=== PATIENT | male | born 1955 | race Caucasian/White ===

== ENCOUNTER 2018-11-09 11:00 | Outpatient (CLI) | payer OTHER ==
--- NOTE | 2018-11-09 11:12 | RAD ---
EXAM: Chest PA and lateral: HISTORY: Shortness of breath COMPARISON: 09/04/2010 FINDINGS: Heart size:Within normal limits. Lungs:Clear of acute process. No confluent pneumonia, overt edema, pleural effusion, or other acute process. IMPRESSION: No significant acute intrathoracic disease.
[2018-11-09 11:19] LABS: #Basophils 0.1 thou/uL (0.0-0.2); #Eosinphils 0.1 thou/uL (0.0-0.7); #Lymphocytes 2.4 thou/uL (1.20-3.40); #Monocytes 0.5 thou/uL (0.11-0.59); #Neutrophils 4.7 thou/uL (1.40-6.50); %Eosinophils 1.2 % (0.0-10.0); %Lymphocytes 31.2 % (21.0-51.0); %Monocytes 5.9 % (0.0-10.0); %Neutrophils 60.6 % (42.0-75.0); Hemoglobin 16.1 g/dL (14.0-18.0); Mean Corpuscular HGB CONC 34.9 g/dL (32.0-36.0); Mean Corpuscular Hemoglobin 30.8 pg (27.0-31.0); Mean Corpuscular Volume 88.4 fL (78.0-98.0); Mean Platelet Volume 7.3 fL (7.4-10.4); Platelet Count 214 thou/uL (130-400); RBC Distribution Width 12.6 % (11.5-14.5); Red Blood Cell (RBC) Count 5.23 mill/uL (4.70-6.10); White Blood Cell (WBC) Count 7.8 thou/uL (4.8-10.8)
[2018-11-09 11:28] LABS: ALT (SGPT) 10 U/L (8-55); AST (SGOT) 29 U/L (5-34); Albumin 4.1 g/dL (3.4-4.8); Alkaline Phosphatase 91 U/L (40-150); Anion Gap 11 mmol/L (10-20); BUN (Urea Nitrogen) 15 mg/dL (8.4-25.7); Bilirubin, Total 0.8 mg/dL (0.2-1.2); Calc. Creatinine Clearance 0 mL/min (70-130); Calcium 9.4 mg/dL (7.8-10.44); Carbon Dioxide 29 mmol/L (23-31); Cardiac Risk 6.5 (Less than 4.5); Chloride 106 mmol/L (98-107); Cholesterol 208 mg/dl (< 200 Desired); Estimated GFR-MDRD 61; Globulin 3.3 g/dL (2.4-3.5); Glucose 101 mg/dL (80-115); HDL Cholesterol 32 mg/dL (>60 Neg Risk); LDL Cholesterol, Calculated 121 mg/dL; Potassium 3.9 mmol/L (3.5-5.1); Protein, Total 7.4 g/dL (5.8-8.1); Sodium 142 mmol/L (136-145); Triglycerides 275 mg/dL (Less than 150)
[2018-11-09 12:06] LABS: Free T4 (Free Thyroxine) 0.97 ng/dL (0.70-1.48); Thyroid Stimulating Hormone 1.6378 uIU/mL (0.35-4.94)
[2018-11-09 14:42] LABS: Hemoglobin A1c 5.6 % (4.0-6.0)
[2018-11-11 15:46] LABS: Ref Lab Test Ordered RBC-MAGNESIUM; Reference Lab Name LABCORP
== END 2018-11-09 11:01 | disposition home or self-care (01) ==
LOC: SCSRAD 11:00
PROVIDERS: ATTEND Family Medicine
DX: I87.2 Venous insufficiency (chronic) (peripheral) (principal); R06.02 Shortness of breath; R60.9 Edema, unspecified; R63.5 Abnormal weight gain
CPT/HCPCS: 36415; 71046; 80053; 80061; 83036; 83525; 83880; 84439; 84443; 84481; 84484; 85025; 85379

== ENCOUNTER 2021-01-03 23:11 | Emergency (ER) | payer MEDICARE, OTHER ==
[2021-01-03 23:52] LABS: #Basophils 0.1 thou/uL (0.0-0.2); #Eosinphils 0.1 thou/uL (0.0-0.7); #Lymphocytes 1.5 thou/uL (1.20-3.40); #Monocytes 0.3 thou/uL (0.11-0.59); #Neutrophils 5.3 thou/uL (1.40-6.50); %Basophils 0.9 % (0.0-1.0); %Eosinophils 1.1 % (0.0-10.0); %Lymphocytes 21.1 % (21.0-51.0); %Monocytes 4.4 % (0.0-10.0); %Neutrophils 72.5 % (42.0-75.0); Hemoglobin 14.9 g/dL (14.0-18.0); Mean Corpuscular HGB CONC 34.1 g/dL (32.0-36.0); Mean Corpuscular Hemoglobin 30.9 pg (27.0-31.0); Mean Corpuscular Volume 90.4 fL (78.0-98.0); Mean Platelet Volume 7.4 fL (7.4-10.4); Platelet Count 258 thou/uL (130-400); RBC Distribution Width 13.9 % (11.5-14.5); Red Blood Cell (RBC) Count 4.82 mill/uL (4.70-6.10); White Blood Cell (WBC) Count 7.3 thou/uL (4.8-10.8)
[2021-01-04 00:11] LABS: ALT (SGPT) Less than 7 U/L (8-55); AST (SGOT) 20 U/L (5-34); Albumin 3.8 g/dL (3.4-4.8); Alkaline Phosphatase 117 U/L (40-110); Anion Gap 14 mmol/L (10-20); BUN (Urea Nitrogen) 26 mg/dL (8.4-25.7); Bilirubin, Total 0.7 mg/dL (0.2-1.2); Calc. Creatinine Clearance 0 mL/min (70-130); Calcium 9.1 mg/dL (7.8-10.44); Carbon Dioxide 24 mmol/L (23-31); Chloride 104 mmol/L (98-107); Globulin 3.9 g/dL (2.4-3.5); Glucose 136 mg/dL (80-115); Protein, Total 7.7 g/dL (5.8-8.1); Sodium 138 mmol/L (136-145)
== END 2021-01-04 05:12 | disposition home or self-care (01) ==
LOC: ERS 23:11
DX: G20 Parkinson's disease (principal); R51.9 Headache, unspecified; Z79.899 Other long term (current) drug therapy
CPT/HCPCS: 36415; 70450; 71045; 80053; 84484; 85025; 93005

== ENCOUNTER 2021-11-10 17:11 | Emergency (ER) | payer MEDICARE, OTHER | END 2021-11-10 18:00 | disposition home or self-care (01) | LOC: ERS 17:11 | DX: G25.81 Restless legs syndrome (principal); G20 Parkinson's disease | CPT/HCPCS: 99283 ==

== ENCOUNTER 2022-02-02 19:36 | Emergency (ER) | payer MEDICARE, OTHER | END 2022-02-02 22:15 | disposition home or self-care (01) | LOC: ERS 19:36 | DX: U07.1 COVID-19 (principal) | CPT/HCPCS: 71045 ==

== ENCOUNTER 2022-03-31 14:08 | Observation (INO) | payer MEDICARE, OTHER ==
[2022-03-31 14:36] LABS: #Eosinphils 0.1 thou/uL (0.0-0.7); #Lymphocytes 2.4 thou/uL (1.20-3.40); #Monocytes 0.9 thou/uL (0.11-0.59); %Basophils 0.2 % (0.0-1.0); %Eosinophils 0.8 % (0.0-10.0); %Lymphocytes 25.2 % (21.0-51.0); %Monocytes 9.7 % (0.0-10.0); %Neutrophils 64.2 % (42.0-75.0); Hemoglobin 15.3 g/dL (14.0-18.0); Mean Corpuscular HGB CONC 34.5 g/dL (32.0-36.0); Mean Corpuscular Hemoglobin 31.1 pg (27.0-31.0); Mean Corpuscular Volume 90.1 fL (78.0-98.0); Mean Platelet Volume 7.4 fL (7.4-10.4); Platelet Count 201 thou/uL (130-400); RBC Distribution Width 13.5 % (11.5-14.5); Red Blood Cell (RBC) Count 4.91 mill/uL (4.70-6.10); White Blood Cell (WBC) Count 9.4 thou/uL (4.8-10.8)
[2022-03-31 14:43] LABS: INR-International Normal Ratio 0.9; Prothrombin Time 12.7 sec (12.0-14.7)
[2022-03-31 14:44] LABS: PTT 30.1 sec (22.9-36.1)
[2022-03-31 14:50] LABS: ALT (SGPT) Less than 7 U/L (8-55); AST (SGOT) 21 U/L (5-34); Albumin 3.9 g/dL (3.4-4.8); Alkaline Phosphatase 110 U/L (40-110); Anion Gap 14 mmol/L (10-20); BUN (Urea Nitrogen) 23 mg/dL (8.4-25.7); Bilirubin, Total 0.9 mg/dL (0.2-1.2); CK (CPK) 127 U/L (30-200); Calc. Creatinine Clearance 0 mL/min (70-130); Calcium 9.2 mg/dL (7.8-10.44); Carbon Dioxide 25 mmol/L (23-31); Chloride 103 mmol/L (98-107); Estimated GFR 55; Globulin 3.6 g/dL (2.4-3.5); Glucose 116 mg/dL (80-115); Protein, Total 7.5 g/dL (5.8-8.1); Sodium 138 mmol/L (136-145)
[2022-03-31 16:28] LABS: Bacteria/HPF 4+ HPF (None Seen); Bilirubin Negative (Negative); Blood, Urine 1+ (Negative); Clarity Turbid (Clear); Glucose, Urine (Dipstick) Normal (Negative); Ketone, Urine Negative (Negative); Leukocyte 250 Leu/uL (Negative); Nitrite 1+ (Negative); Protein, Urine (Dipstick) Negative (Neg-Trace); RBC/HPF 0-3 HPF (0-3); Specific Gravity, Urine 1.015 (1.002-1.036); Squamous Epithelial None Seen HPF (0-3); Urobilinogen Normal mg/dL (Less than 2); pH, Urine 6.5 (5.0-9.0)
[2022-03-31] MEDS ORDERED: cefTRIAXone\\ROCEPHIN 1 GM VIAL ONE (17:06)
== END 2022-03-31 18:10 | disposition left against medical advice (07) ==
LOC: ERS 14:08 → ERHOLD 16:28
PROVIDERS: ADMIT Internal Medicine; ATTEND Internal Medicine
DX: N39.0 Urinary tract infection, site not specified (principal); R47.1 Dysarthria and anarthria; I45.10 Unspecified right bundle-branch block; G20 Parkinson's disease; E78.00 Pure hypercholesterolemia, unspecified; Z53.29 Procedure and treatment not carried out because of patient's decision for other reasons; Z79.899 Other long term (current) drug therapy; Z91.041 Radiographic dye allergy status
CPT/HCPCS: 36415; 36416; 70450; 71045; 80053; 81003; 81015; 82550; 83605; 83690; 84484; 85025; 85610; 85730; 87077; 87086; 87186; 93005; 96374; J0696

== ENCOUNTER 2023-05-10 09:20 | Outpatient (CLI) | payer MEDICARE, OTHER | END 2023-05-10 09:21 | disposition home or self-care (01) | LOC: SCSRAD 09:20 | PROVIDERS: ATTEND Family Medicine | DX: S89.91XA Unspecified injury of right lower leg, initial encounter (principal) ==

== ENCOUNTER 2023-05-23 12:10 | Outpatient (CLI) | payer MEDICARE, OTHER | END 2023-05-23 12:11 | disposition home or self-care (01) | LOC: SCSRAD 12:10 | PROVIDERS: ATTEND Nurse Practitioner Family | DX: R05.1 Acute cough (principal) | CPT/HCPCS: 71046 ==

== ENCOUNTER 2023-10-07 06:16 | Day surgery (SDC) | payer MEDICARE, OTHER ==
[2023-10-06 10:25] VITALS: BMI 36.5
[2023-10-07] MEDS ORDERED: Heparin 10,000 UNITS/ 10 ML VIAL ONE (06:48)
[2023-10-07] MEDS ORDERED: Nitroglycerin 50 MG/250 ML BOT 250 ML ONE (07:53)
[2023-10-07] MEDS ORDERED: Verapamil 5 MG/2 ML VIAL ONE (07:53)
[2023-10-07] MEDS ORDERED: fentaNYL 50 mcg/mL 1 mL Vial ONE (08:20)
[2023-10-07] MEDS ORDERED: Midazolam HCl 2 mg/2 ml Vial ONE (08:20)
[2023-10-07] MEDS ORDERED: TICAGRELOR 90 MG TABLET ONE (09:37)
[2023-10-07] MEDS ORDERED: Aspirin Chewable 81 MG TAB ONE (09:56)
[2023-10-07] MEDS ORDERED: Iopamidol 370 76% 100 ML VIAL ONE (11:44)
== END 2023-10-07 13:55 | disposition home or self-care (01) ==
LOC: CCL 06:16
PROVIDERS: ATTEND Internal Medicine Cardiovascular Disease
PROC: 4A023N7 Measurement of Cardiac Sampling and Pressure, Left Heart, Percutaneous Approach (ICD-10-PCS; principal; 2023-10-07)
PROC: B200YZZ Plain Radiography of Single Coronary Artery using Other Contrast (ICD-10-PCS; 2023-10-07)
PROC: 4A033BC Measurement of Arterial Pressure, Coronary, Percutaneous Approach (ICD-10-PCS; 2023-10-07)
PROC: 4A0335C Measurement of Arterial Flow, Coronary, Percutaneous Approach (ICD-10-PCS; 2023-10-07)
DX: R06.09 Other forms of dyspnea (principal); I10 Essential (primary) hypertension; G20.A1 Parkinson's disease without dyskinesia, without mention of fluctuations; R01.1 Cardiac murmur, unspecified; E78.00 Pure hypercholesterolemia, unspecified; N40.1 Benign prostatic hyperplasia with lower urinary tract symptoms; R31.9 Hematuria, unspecified; I35.0 Nonrheumatic aortic (valve) stenosis; Z95.5 Presence of coronary angioplasty implant and graft; Z90.89 Acquired absence of other organs; Z98.890 Other specified postprocedural states; Z91.041 Radiographic dye allergy status; Z79.899 Other long term (current) drug therapy
CPT/HCPCS: 36140; 85347 ×2; 92928; 92929; 92978 ×2; 92979 ×2; 93005; 93458 ×2; 93571; 93799 ×2; C1753; C1760; C1769 ×5; C1874 ×2; C1887; C1894 ×2; C9600 ×2; J1644; J2250; J3010; Q9967; 99152; 99153; C9601

== ENCOUNTER 2023-11-02 16:00 | Outpatient (CLI) | payer MEDICARE, OTHER | END 2023-11-02 16:01 | disposition home or self-care (01) | LOC: SLEEPLAB 16:00 | PROVIDERS: ATTEND Family Medicine | DX: G47.33 Obstructive sleep apnea (adult) (pediatric) (principal); R09.02 Hypoxemia; G47.00 Insomnia, unspecified; R53.83 Other fatigue; E66.9 Obesity, unspecified; Z68.38 Body mass index [BMI] 38.0-38.9, adult | CPT/HCPCS: 95800 ==

== ENCOUNTER 2023-11-27 16:21 | Emergency (ER) | payer MEDICARE, OTHER ==
[2023-11-27 17:22] LABS: #Basophils 0.03 10x3/uL (0.0-0.2); %Basophils 0.4 % (0.0-1.0); %Eosinophils 1.5 % (0.0-10.0); %Lymphocytes 16.1 % (21.0-51.0); %Monocytes 5.6 % (0.0-10.0); %Neutrophils 76.1 % (42.0-75.0); Hematocrit 44.7 % (42.0-52.0); Hemoglobin 16.1 g/dL (14.0-18.0); Mean Corpuscular Hemoglobin 30.4 pg (27.0-31.0); Mean Corpuscular Volume 84.3 fL (78.0-98.0); Platelet Count 160 10x3/uL (130-400); RBC Distribution Width 14.6 % (11.5-14.5)
[2023-11-27 17:37] LABS: Troponin I Less than 0.010 ng/mL (< 0.028)
[2023-11-27 17:42] LABS: ALT (SGPT) 6 U/L (8-55); AST (SGOT) 33 U/L (5-34); Albumin 3.5 g/dL (3.4-4.8); Alkaline Phosphatase 96 U/L (40-110); Anion Gap 15 mmol/L (10-20); BUN (Urea Nitrogen) 22 mg/dL (8.4-25.7); Bilirubin, Total 1.4 mg/dL (0.2-1.2); Calc. Creatinine Clearance 0 mL/min (70-130); Calcium 8.8 mg/dL (7.8-10.44); Carbon Dioxide 23 mmol/L (23-31); Chloride 106 mmol/L (98-107); Estimated GFR 80; Globulin 3.6 g/dL (2.4-3.5); Glucose 121 mg/dL (80-115); Lipase 24 U/L (8-78); Magnesium 1.8 mg/dL (1.6-2.6); Potassium 4.4 mmol/L (3.5-5.1); Protein, Total 7.1 g/dL (5.8-8.1); Sodium 140 mmol/L (136-145)
== END 2023-11-27 18:55 | disposition home or self-care (01) ==
LOC: ERS 16:21
DX: E86.0 Dehydration (principal); G20.C Parkinsonism, unspecified
CPT/HCPCS: 36415; 71045; 80053; 83690; 83735; 83880; 84484; 85025; 93005

== ENCOUNTER 2023-12-16 21:23 | Inpatient (IN) | payer MEDICARE, OTHER ==
[2023-12-16 21:49] LABS: #Basophils 0.04 10x3/uL (0.0-0.2); %Basophils 0.5 % (0.0-1.0); %Eosinophils 1.5 % (0.0-10.0); %Neutrophils 63.8 % (42.0-75.0); Hematocrit 41.9 % (42.0-52.0); Hemoglobin 14.9 g/dL (14.0-18.0); Mean Corpuscular HGB CONC 35.6 g/dL (32.0-36.0); Mean Corpuscular Hemoglobin 30.3 pg (27.0-31.0); Mean Corpuscular Volume 85.2 fL (78.0-98.0); Mean Platelet Volume 9.9 fL (7.4-10.4); Platelet Count 210 10x3/uL (130-400); RBC Distribution Width 14.1 % (11.5-14.5); Red Blood Cell (RBC) Count 4.92 mill/uL (4.70-6.10)
[2023-12-16 22:02] LABS: PTT 29.9 sec (22.9-36.1); Prothrombin Time 13.3 sec (12.0-14.7)
[2023-12-16 22:03] LABS: D-Dimer Test 0.78 mcg/mL (0.27-0.43)
[2023-12-16 22:09] LABS: ALT (SGPT) 23 U/L (8-55); AST (SGOT) 22 U/L (5-34); Albumin 3.6 g/dL (3.4-4.8); Alkaline Phosphatase 123 U/L (40-110); Anion Gap 14 mmol/L (10-20); BUN (Urea Nitrogen) 21 mg/dL (8.4-25.7); Bilirubin, Total 0.8 mg/dL (0.2-1.2); Calc. Creatinine Clearance 0 mL/min (70-130); Calcium 8.8 mg/dL (7.8-10.44); Carbon Dioxide 21 mmol/L (23-31); Chloride 107 mmol/L (98-107); Estimated GFR 63; Globulin 3.6 g/dL (2.4-3.5); Glucose 176 mg/dL (80-115); Lipase 21 U/L (8-78); Protein, Total 7.2 g/dL (5.8-8.1); Sodium 138 mmol/L (136-145)
[2023-12-16 22:12] LABS: Troponin I Less than 0.010 ng/mL (< 0.028)
[2023-12-16] MEDS ORDERED: methylPREDNISolone Sod Succ 40 MG VIAL ONE (23:09)
[2023-12-16] MEDS ORDERED: Famotidine/PF 20 mg/2ml Vial ONE (23:09)
[2023-12-16] MEDS ORDERED: diphenhydrAMINE 50 MG/ML VIAL ONE (23:09)
[2023-12-17 01:31] LABS: Troponin I Less than 0.010 ng/mL (< 0.028)
[2023-12-17 02:49] VITALS: BMI 38.1
[2023-12-17] MEDS: Sodium Chloride 0.9% 1,000 ML IV SCH ×2 (03:53→08:58)
[2023-12-17 04:01] LABS: Troponin I Less than 0.010 ng/mL (< 0.028)
[2023-12-17] MEDS ORDERED: Pramipexole Di-HCl 1 MG TAB PO SCH (05:00)
[2023-12-17] MEDS: Carbidopa/Levodopa 25-100 mg Tablet PO SCH (06:02)
[2023-12-17] MEDS: Entacapone 200 mg Tablet PO SCH (06:02)
[2023-12-17] MEDS: Carbidopa/Levodopa 25-250 mg Tablet PO SCH (06:02)
[2023-12-17 07:14] LABS: Troponin I Less than 0.010 ng/mL (< 0.028)
[2023-12-17] MEDS: Ciprofloxacin 500 MG TAB PO SCH (08:12)
[2023-12-17] MEDS: Aspirin Chewable 81 MG TAB PO SCH (08:12)
[2023-12-17] MEDS: Clopidogrel Bisulfate 75 MG TAB PO SCH (08:12)
[2023-12-17] MEDS: Atorvastatin Calcium 20 MG TAB PO SCH (20:28)
[2023-12-19] MEDS: Bisacodyl 5 MG TAB PO PRN (05:15)
[2023-12-19] MEDS: Clopidogrel Bisulfate 75 MG TAB PO SCH (13:18)
[2023-12-19] MEDS: predniSONE 50 MG TAB PO SCH (20:45)
[2023-12-20] MEDS: hydrOXYzine 25 MG TAB PO SCH (05:13)
[2023-12-20 06:24] LABS: #Basophils 0.03 10x3/uL (0.0-0.2); #Eosinphils Less than 0.03 10x3/uL (0.0-0.7); %Basophils 0.3 % (0.0-1.0); %Eosinophils 0.1 % (0.0-10.0); %Monocytes 1.1 % (0.0-10.0); %Neutrophils 87.5 % (42.0-75.0); Hematocrit 43.8 % (42.0-52.0); Hemoglobin 15.4 g/dL (14.0-18.0); Mean Corpuscular HGB CONC 35.2 g/dL (32.0-36.0); Mean Corpuscular Hemoglobin 29.8 pg (27.0-31.0); Mean Corpuscular Volume 84.7 fL (78.0-98.0); Mean Platelet Volume 9.8 fL (7.4-10.4); Platelet Count 200 10x3/uL (130-400); Red Blood Cell (RBC) Count 5.17 mill/uL (4.70-6.10)
[2023-12-20 06:41] LABS: Anion Gap 15 mmol/L (10-20); BUN (Urea Nitrogen) 20 mg/dL (8.4-25.7); Calc. Creatinine Clearance 106 mL/min (70-130); Calcium 9.2 mg/dL (7.8-10.44); Carbon Dioxide 24 mmol/L (23-31); Chloride 103 mmol/L (98-107); Estimated GFR 76; Glucose 169 mg/dL (80-115); Potassium 4.2 mmol/L (3.5-5.1); Sodium 138 mmol/L (136-145)
[2023-12-20] MEDS: diphenhydrAMINE 50 MG CAP PO SCH (08:48)
[2023-12-20] MEDS ORDERED: Vancomycin 1 GM in Premix 1 BAG IVPB SCH (09:00)
[2023-12-20] MEDS ORDERED: Gentamicin 80 MG/2 ML VIAL ONE (09:50)
[2023-12-20] MEDS ORDERED: CEFAZOLIN 2 GM VIAL ONE (09:50)
[2023-12-20] MEDS ORDERED: fentaNYL 50 mcg/mL 1 mL Vial ONE (12:02)
[2023-12-20] MEDS ORDERED: Midazolam HCl 2 mg/2 ml Vial ONE (12:02)
[2023-12-20] MEDS ORDERED: Ondansetron PF 4 MG/2 ML Vial ONE (12:02)
[2023-12-20] MEDS ORDERED: PROPOFOL 20 ML ONE (12:03)
[2023-12-20] MEDS ORDERED: Lidocaine 1% PF 5 ML VIAL ONE ×2 (12:03)
[2023-12-20] MEDS ORDERED: Dexamethasone 20 MG/5 ML VIAL ONE (12:16)
[2023-12-20] MEDS ORDERED: PHENYLEPHRINE-NS 100 MCG/ML 10 ML SYRINGE ONE (12:16)
[2023-12-20 14:20] VITALS: BP 144/66; TEMP 97.8
[2023-12-20] MEDS ORDERED: Iopamidol 370 76% 100 ML VIAL ONE (14:31)
== END 2023-12-20 18:34 | disposition home or self-care (01) | DRG 243 ==
LOC: ERS 21:23 → 2NO 12-17 01:23 → OBSVTOIN 12-18 08:23
PROVIDERS: ADMIT Internal Medicine; ATTEND Internal Medicine
PROC: 0JH606Z Insertion of Pacemaker, Dual Chamber into Chest Subcutaneous Tissue and Fascia, Open Approach (ICD-10-PCS; principal; 2023-12-18)
PROC: 02H63JZ Insertion of Pacemaker Lead into Right Atrium, Percutaneous Approach (ICD-10-PCS; 2023-12-18)
PROC: 02HK3JZ Insertion of Pacemaker Lead into Right Ventricle, Percutaneous Approach (ICD-10-PCS; 2023-12-18)
DX: R07.89 Other chest pain (principal); N39.0 Urinary tract infection, site not specified; G20.A1 Parkinson's disease without dyskinesia, without mention of fluctuations; G25.81 Restless legs syndrome; I25.10 Atherosclerotic heart disease of native coronary artery without angina pectoris; I48.0 Paroxysmal atrial fibrillation; R00.1 Bradycardia, unspecified; N40.0 Benign prostatic hyperplasia without lower urinary tract symptoms; I10 Essential (primary) hypertension; I44.1 Atrioventricular block, second degree; F41.9 Anxiety disorder, unspecified; R06.82 Tachypnea, not elsewhere classified; Z95.5 Presence of coronary angioplasty implant and graft; Z91.041 Radiographic dye allergy status; Z79.82 Long term (current) use of aspirin; Z79.899 Other long term (current) drug therapy; E66.9 Obesity, unspecified; Z68.38 Body mass index [BMI] 38.0-38.9, adult; Z79.02 Long term (current) use of antithrombotics/antiplatelets
CPT/HCPCS: 33208; 36415; 71045; 78451; 80048; 80053; 83690; 83735; 83880; 84484; 85025; 85379; 85610; 85730; 93005; 93010; 93970; 94760; 96374; 96375; A9540; C1769; C1785; C1894; C1898; G0378; J1100; J1200; J1580; J2250; J2405; J2704; J2920; J3010; J7050; J7512; Q9967; S0028

== ENCOUNTER 2024-04-10 08:51 | Outpatient (CLI) | payer MEDICARE, OTHER | END 2024-04-10 08:52 | disposition home or self-care (01) | LOC: NM 08:51 | PROVIDERS: ATTEND Psychiatry & Neurology Neurology | DX: G20.C Parkinsonism, unspecified (principal); R93.0 Abnormal findings on diagnostic imaging of skull and head, not elsewhere classified; G31.89 Other specified degenerative diseases of nervous system | CPT/HCPCS: 78803; A9584 ×2 ==

== ENCOUNTER 2024-04-28 01:50 | Emergency (ER) | payer MEDICARE, OTHER ==
[2024-04-28 05:03] LABS: #Basophils 0.05 10x3/uL (0.0-0.2); %Basophils 0.6 % (0.0-1.0); %Eosinophils 0.9 % (0.0-10.0); %Lymphocytes 19.3 % (21.0-51.0); %Neutrophils 72.6 % (42.0-75.0); Hematocrit 45.2 % (42.0-52.0); Hemoglobin 15.5 g/dL (14.0-18.0); Mean Corpuscular HGB CONC 34.3 g/dL (32.0-36.0); Mean Corpuscular Volume 87.6 fL (78.0-98.0); Mean Platelet Volume 9.6 fL (7.4-10.4); Platelet Count 191 10x3/uL (130-400); RBC Distribution Width 14.1 % (11.5-14.5); Red Blood Cell (RBC) Count 5.16 mill/uL (4.70-6.10)
[2024-04-28] MEDS ORDERED: Cefepime 2 GM VIAL ONE (05:05)
[2024-04-28] MEDS ORDERED: Sodium Chloride 0.9% 100 ML ONE (05:05)
[2024-04-28 05:17] LABS: ALT (SGPT) 16 U/L (8-55); AST (SGOT) 18 U/L (5-34); Albumin 3.8 g/dL (3.4-4.8); Alkaline Phosphatase 147 U/L (40-110); Anion Gap 14 mmol/L (10-20); BUN (Urea Nitrogen) 19 mg/dL (8.4-25.7); Bilirubin, Total 1.3 mg/dL (0.2-1.2); Calc. Creatinine Clearance 0 mL/min (70-130); Calcium 9.2 mg/dL (7.8-10.44); Carbon Dioxide 25 mmol/L (23-31); Chloride 102 mmol/L (98-107); Estimated GFR 65; Globulin 3.7 g/dL (2.4-3.5); Glucose 121 mg/dL (80-115); Potassium 4.2 mmol/L (3.5-5.1); Protein, Total 7.5 g/dL (5.8-8.1); Sodium 137 mmol/L (136-145)
[2024-04-28 06:08] LABS: Troponin I Less than 0.010 ng/mL (< 0.028)
[2024-04-28] MEDS ORDERED: Vancomycin (BATCH) 2 GM/500 ML BAG ONE (06:19)
== END 2024-04-28 09:20 | disposition home or self-care (01) ==
LOC: ERS 01:50
DX: L03.116 Cellulitis of left lower limb (principal); I10 Essential (primary) hypertension; Z95.5 Presence of coronary angioplasty implant and graft
CPT/HCPCS: 71045; 73610; 80053; 83605; 83880; 84484; 85025; 87040; 93005; J0692; J3370; 36415; 96374; 96375

== ENCOUNTER 2024-05-08 21:39 | Emergency (ER) | payer MEDICARE, OTHER ==
[2024-05-09 00:04] LABS: #Basophils 0.06 10x3/uL (0.0-0.2); %Basophils 0.8 % (0.0-1.0); %Lymphocytes 23.1 % (21.0-51.0); %Monocytes 6.6 % (0.0-10.0); Hematocrit 40.9 % (42.0-52.0); Hemoglobin 13.9 g/dL (14.0-18.0); Mean Corpuscular Hemoglobin 29.6 pg (27.0-31.0); Mean Corpuscular Volume 87.2 fL (78.0-98.0); Mean Platelet Volume 9.3 fL (7.4-10.4); Platelet Count 206 10x3/uL (130-400); RBC Distribution Width 14.1 % (11.5-14.5); Red Blood Cell (RBC) Count 4.69 mill/uL (4.70-6.10)
[2024-05-09 00:18] LABS: ALT (SGPT) Less than 5 U/L (8-55); AST (SGOT) 19 U/L (5-34); Albumin 3.4 g/dL (3.4-4.8); Alkaline Phosphatase 119 U/L (40-110); Anion Gap 11 mmol/L (10-20); BUN (Urea Nitrogen) 19 mg/dL (8.4-25.7); Calc. Creatinine Clearance 0 mL/min (70-130); Carbon Dioxide 29 mmol/L (23-31); Chloride 105 mmol/L (98-107); Estimated GFR 65; Globulin 3.3 g/dL (2.4-3.5); Glucose 107 mg/dL (80-115); Potassium 4.4 mmol/L (3.5-5.1); Protein, Total 6.7 g/dL (5.8-8.1); Sodium 141 mmol/L (136-145)
[2024-05-09] MEDS ORDERED: Vancomycin (BATCH) 2.5 GM in Premix 1 BAG IVPB SCH (01:00)
[2024-05-09] MEDS ORDERED: Vancomycin (BATCH) 2 GM in Premix 1 BAG IVPB SCH (01:00)
[2024-05-09] MEDS ORDERED: Cefepime 2 GM VIAL ONE (01:57)
[2024-05-09] MEDS ORDERED: Sodium Chloride 0.9% 100 ML ONE (01:57)
== END 2024-05-09 03:00 | disposition home or self-care (01) ==
LOC: ERS 21:39
DX: I87.2 Venous insufficiency (chronic) (peripheral) (principal); I10 Essential (primary) hypertension; Z95.5 Presence of coronary angioplasty implant and graft
CPT/HCPCS: 71045; 80053; 83605; 83880; 85025; 87040; 93970; J0692; J3370; 36416; 96374

== ENCOUNTER 2024-06-03 21:23 | Inpatient (IN) | payer MEDICARE, OTHER ==
[2024-06-03] MEDS ORDERED: Nitroglycerin 0.4 MG TAB 1 EACH ONE (21:38)
[2024-06-03] MEDS ORDERED: Aspirin Chewable 81 MG TAB ONE (21:51)
[2024-06-03] MEDS ORDERED: Nitroglycerin 2% Ointment 1 INCH/1 GM Packet ONE (21:51)
[2024-06-03] MEDS ORDERED: Ipratropium/Albuterol 3 ML NEB ONE (21:53)
[2024-06-03 22:00] LABS: Actual Bicarbonate (HCO3v) 28.5 mEq/L (22-28); Analyzer IN Cardio ER; Base Excess 2.4 mEq/L (-2.0 to +3.0); Calcium, Ionized (venous) 1.11 mmol/L (1.16-1.32); Chloride (VBG) 103 mmol/L (98-106); Hematocrit-VBG 42 % (42.0-52.0); Hemoglobin (Hb) 14.2 g/dL (12.6-17.4); Potassium (VBG) 3.97 mmol/L (3.70-5.30); Sodium 140 mmol/L (133-146); pH (venous) 7.375 (7.32-7.43)
[2024-06-03 22:05] LABS: #Basophils 0.03 10x3/uL (0.0-0.2); %Basophils 0.4 % (0.0-1.0); %Eosinophils 1.3 % (0.0-10.0); %Lymphocytes 21.1 % (21.0-51.0); %Monocytes 5.6 % (0.0-10.0); %Neutrophils 71.2 % (42.0-75.0); Hematocrit 39.8 % (42.0-52.0); Hemoglobin 13.7 g/dL (14.0-18.0); Mean Corpuscular HGB CONC 34.4 g/dL (32.0-36.0); Mean Corpuscular Hemoglobin 29.8 pg (27.0-31.0); Mean Corpuscular Volume 86.7 fL (78.0-98.0); Mean Platelet Volume 10.1 fL (7.4-10.4); Platelet Count 157 10x3/uL (130-400); RBC Distribution Width 14.6 % (11.5-14.5); Red Blood Cell (RBC) Count 4.59 mill/uL (4.70-6.10)
[2024-06-03 22:21] LABS: ALT (SGPT) 8 U/L (8-55); AST (SGOT) 13 U/L (5-34); Albumin 3.4 g/dL (3.4-4.8); Alkaline Phosphatase 119 U/L (40-110); Anion Gap 12 mmol/L (10-20); BUN (Urea Nitrogen) 18 mg/dL (8.4-25.7); Bilirubin, Total 1.3 mg/dL (0.2-1.2); Calc. Creatinine Clearance 0 mL/min (70-130); Calcium 8.5 mg/dL (7.8-10.44); Carbon Dioxide 25 mmol/L (23-31); Chloride 107 mmol/L (98-107); Estimated GFR 66; Globulin 2.6 g/dL (2.4-3.5); Glucose 150 mg/dL (80-115); Sodium 140 mmol/L (136-145)
[2024-06-03] MEDS ORDERED: Furosemide 40 MG (4 mL) VIAL ONE (22:26)
[2024-06-03 22:28] LABS: Troponin I Less than 0.010 ng/mL (< 0.028)
[2024-06-03] MEDS ORDERED: traMADol HCl 50 MG TAB PO PRN (23:46)
[2024-06-03] MEDS ORDERED: Bisacodyl 5 MG TAB PO PRN (23:46)
[2024-06-03] MEDS ORDERED: Acetaminophen 325 MG TAB PO PRN (23:46)
[2024-06-04] MEDS ORDERED: methylPREDNISolone Sod Succ/PF 125 MG/2 ML VIAL ONE (00:03)
[2024-06-04 00:57] LABS: Troponin I Less than 0.010 ng/mL (< 0.028)
[2024-06-04 01:25] VITALS: BMI 38.9
[2024-06-04 02:31] LABS: #Basophils 0.04 10x3/uL (0.0-0.2); #Eosinophils Less than 0.03 10x3/uL (0.0-0.7); %Basophils 0.4 % (0.0-1.0); %Eosinophils 0.2 % (0.0-10.0); %Lymphocytes 7.7 % (21.0-51.0); %Monocytes 2.2 % (0.0-10.0); %Neutrophils 89.2 % (42.0-75.0); Hemoglobin 14.2 g/dL (14.0-18.0); Mean Corpuscular HGB CONC 34.6 g/dL (32.0-36.0); Mean Corpuscular Hemoglobin 30.2 pg (27.0-31.0); Mean Corpuscular Volume 87.2 fL (78.0-98.0); Mean Platelet Volume 9.8 fL (7.4-10.4); Platelet Count 178 10x3/uL (130-400); RBC Distribution Width 14.5 % (11.5-14.5)
[2024-06-04 02:44] LABS: ALT (SGPT) Less than 5 U/L (8-55); AST (SGOT) 14 U/L (5-34); Albumin 3.7 g/dL (3.4-4.8); Alkaline Phosphatase 118 U/L (40-110); Anion Gap 14 mmol/L (10-20); BUN (Urea Nitrogen) 20 mg/dL (8.4-25.7); Bilirubin, Total 1.6 mg/dL (0.2-1.2); Calc. Creatinine Clearance 97 mL/min (70-130); Calcium 8.7 mg/dL (7.8-10.44); Carbon Dioxide 25 mmol/L (23-31); Chloride 104 mmol/L (98-107); Estimated GFR 66; Globulin 3.1 g/dL (2.4-3.5); Glucose 138 mg/dL (80-115); Potassium 4.2 mmol/L (3.5-5.1); Protein, Total 6.8 g/dL (5.8-8.1); Sodium 139 mmol/L (136-145)
[2024-06-04 03:27] LABS: Troponin I Less than 0.010 ng/mL (< 0.028)
[2024-06-04] MEDS: Nitroglycerin 2% Ointment 1 INCH/1 GM Packet TOP SCH (05:16)
[2024-06-04] MEDS: Carbidopa/Levodopa 25-250 mg Tablet PO SCH ×2 (05:16→14:18)
[2024-06-04] MEDS: Carbidopa/Levodopa 25-100 mg Tablet PO SCH ×2 (06:00→14:18)
[2024-06-04] MEDS ORDERED: Aspirin Chewable 81 MG TAB PO SCH (09:00)
[2024-06-04] MEDS: Enoxaparin 40 MG (0.4 mL) SYRINGE SC SCH (10:13)
[2024-06-04] MEDS: Aspirin Chewable 81 MG TAB PO SCH (10:14)
[2024-06-04] MEDS: Famotidine 20 MG TAB PO SCH (10:15)
[2024-06-04] MEDS: Clopidogrel Bisulfate 75 MG TAB PO SCH ×2 (10:15→10:39)
[2024-06-04] MEDS: Furosemide 40 MG (4 mL) VIAL SLOW IVP SCH ×2 (10:17→16:09)
[2024-06-04] MEDS: Famotidine/PF 20 mg/2ml Vial SLOW IVP SCH (10:17)
[2024-06-04] MEDS: Pramipexole Di-HCl 1 MG TAB PO SCH (14:17)
[2024-06-04] MEDS: PRAMIPEXOLE DI HCL 3 MG PO SCH (14:22)
[2024-06-04] MEDS: Ipratropium/Albuterol 3 ML NEB NEB SCH (15:21)
[2024-06-04 17:23] VITALS: BP 129/60; TEMP 97.8
[2024-06-04] MEDS ORDERED: Carbidopa/Levodopa 25-100 mg Tablet PO SCH (21:00)
[2024-06-04] MEDS ORDERED: Carbidopa/Levodopa 25-250 mg Tablet PO SCH (21:00)
[2024-06-04] MEDS ORDERED: Pramipexole Di-HCl 1 MG TAB PO SCH (21:00)
[2024-06-04] MEDS ORDERED: Atorvastatin Calcium 20 MG TAB PO SCH (21:00)
== END 2024-06-04 18:09 | disposition home or self-care (01) | DRG 291 ==
LOC: ERS 21:23 → 2NO 23:46 → OBSVTOIN 06-04 10:39
PROVIDERS: ADMIT Internal Medicine; ATTEND Internal Medicine
DX: I11.0 Hypertensive heart disease with heart failure (principal); I50.33 Acute on chronic diastolic (congestive) heart failure; J96.01 Acute respiratory failure with hypoxia; I25.10 Atherosclerotic heart disease of native coronary artery without angina pectoris; E78.5 Hyperlipidemia, unspecified; Z91.041 Radiographic dye allergy status; G20.A1 Parkinson's disease without dyskinesia, without mention of fluctuations; G25.81 Restless legs syndrome; Z79.82 Long term (current) use of aspirin; Z79.899 Other long term (current) drug therapy; R60.9 Edema, unspecified
CPT/HCPCS: 36415; 71045; 71250; 78451; 80053; 82805; 83880; 84145; 84484; 85025; 85379; 87428; 93005; 93306; 93970; 94760; 96372; 96374; 96375; 96376; A9540; G0378; J1650; J1940; J2919; J7620

== ENCOUNTER 2024-07-04 14:12 | Outpatient (CLI) | payer MEDICARE, OTHER ==
[2024-07-04 15:57] LABS: #Basophils 0.04 10x3/uL (0.0-0.2); %Basophils 0.5 % (0.0-1.0); %Eosinophils 0.9 % (0.0-10.0); %Lymphocytes 15.8 % (21.0-51.0); %Monocytes 5.6 % (0.0-10.0); %Neutrophils 76.6 % (42.0-75.0); Hematocrit 41.9 % (42.0-52.0); Hemoglobin 13.9 g/dL (14.0-18.0); Mean Corpuscular HGB CONC 33.2 g/dL (32.0-36.0); Mean Corpuscular Hemoglobin 29.3 pg (27.0-31.0); Mean Corpuscular Volume 88.2 fL (78.0-98.0); Mean Platelet Volume 10.6 fL (7.4-10.4); Platelet Count 179 10x3/uL (130-400); RBC Distribution Width 14.5 % (11.5-14.5); Red Blood Cell (RBC) Count 4.75 mill/uL (4.70-6.10)
[2024-07-04 16:01] LABS: Calc. Creatinine Clearance 0 mL/min (70-130); Estimated GFR 52
[2024-07-04 16:03] LABS: ALT (SGPT) Less than 5 U/L (8-55); AST (SGOT) 15 U/L (5-34); Albumin 3.8 g/dL (3.4-4.8); Alkaline Phosphatase 121 U/L (40-110); Anion Gap 14 mmol/L (10-20); BUN (Urea Nitrogen) 22 mg/dL (8.4-25.7); Bilirubin, Total 1.3 mg/dL (0.2-1.2); Carbon Dioxide 23 mmol/L (23-31); Chloride 109 mmol/L (98-107); Globulin 3.2 g/dL (2.4-3.5); Glucose 129 mg/dL (80-115); Potassium 3.9 mmol/L (3.5-5.1); Sodium 142 mmol/L (136-145)
== END 2024-07-04 14:13 | disposition home or self-care (01) ==
LOC: LABBT 14:12
PROVIDERS: ATTEND Internal Medicine Cardiovascular Disease
DX: Z01.812 Encounter for preprocedural laboratory examination (principal); I25.10 Atherosclerotic heart disease of native coronary artery without angina pectoris
CPT/HCPCS: 80053; 85025

== ENCOUNTER 2024-07-10 05:44 | Observation (INO) | payer MEDICARE, OTHER ==
[2024-07-10] MEDS ORDERED: Heparin 10,000 UNITS/ 10 ML VIAL ONE ×2 (06:45→07:50)
[2024-07-10] MEDS ORDERED: fentaNYL 50 mcg/mL 1 mL Vial ONE ×2 (06:45→09:41)
[2024-07-10] MEDS ORDERED: Midazolam HCl 2 mg/2 ml Vial ONE ×2 (06:45→09:36)
[2024-07-10] MEDS ORDERED: Nitroglycerin 50 MG/250 ML BOT 0 ML ONE (06:45)
[2024-07-10] MEDS ORDERED: Adenosine 6 mg (2 mL) VIAL ONE (06:45)
[2024-07-10] MEDS ORDERED: Verapamil 5 MG/2 ML VIAL ONE (06:45)
[2024-07-10] MEDS ORDERED: EPINEPHrine 1 MG/ML VIAL ONE (07:11)
[2024-07-10] MEDS ORDERED: hydrALAZINE 20 MG/ML VIAL ONE ×2 (08:08→09:18)
[2024-07-10] MEDS ORDERED: TICAGRELOR 90 MG TABLET ONE (08:09)
[2024-07-10] MEDS ORDERED: Iopamidol 370 76% 100 ML VIAL ONE (09:10)
[2024-07-10] MEDS ORDERED: Morphine 4 MG/ML VIAL ONE (09:31)
[2024-07-10 09:41] LABS: Hematocrit 43.4 % (42.0-52.0); Hemoglobin 14.6 g/dL (14.0-18.0); Platelet Count 186 10x3/uL (130-400)
[2024-07-10] MEDS ORDERED: Protamine Sulfate 50 MG/5 ML VIAL ONE (09:46)
[2024-07-10] MEDS ORDERED: Norepinephrine 4 MG/4 ML VIAL ONE (10:09)
[2024-07-10] MEDS: Morphine 2 MG/ML VIAL SLOW IVP PRN (20:20)
[2024-07-10 21:13] LABS: Hematocrit 42.8 % (42.0-52.0); Hemoglobin 14.9 g/dL (14.0-18.0)
[2024-07-10] MEDS: Atorvastatin Calcium 40 MG TAB PO SCH (21:37)
[2024-07-10] MEDS: Pramipexole Di-HCl 1 MG TAB PO SCH (21:37)
[2024-07-10] MEDS: TICAGRELOR 90 MG TABLET PO SCH (21:38)
[2024-07-10] MEDS: Carbidopa/Levodopa 25-100 mg Tablet PO SCH (21:38)
[2024-07-10] MEDS: Atorvastatin Calcium 10 MG TAB PO SCH (21:38)
[2024-07-10] MEDS: Carbidopa/Levodopa 25-250 mg Tablet PO SCH (21:38)
[2024-07-10] MEDS: Acetaminophen/Codeine 30-300mg Tablet PO PRN (22:31)
[2024-07-11] MEDS: Morphine 4 MG/ML VIAL ONE (02:09)
[2024-07-11] MEDS: Sodium Chloride 0.9% 1,000 ML IV SCH (02:10)
[2024-07-11 04:22] VITALS: BMI 38.7
[2024-07-11 04:25] LABS: #Basophils 0.04 10x3/uL (0.0-0.2); #Eosinophils Less than 0.03 10x3/uL (0.0-0.7); %Basophils 0.3 % (0.0-1.0); %Lymphocytes 8.1 % (21.0-51.0); %Monocytes 7.3 % (0.0-10.0); Hemoglobin 12.7 g/dL (14.0-18.0); Mean Corpuscular HGB CONC 33.4 g/dL (32.0-36.0); Mean Corpuscular Hemoglobin 29.1 pg (27.0-31.0); Mean Corpuscular Volume 87.2 fL (78.0-98.0); Mean Platelet Volume 10.3 fL (7.4-10.4); Platelet Count 184 10x3/uL (130-400); RBC Distribution Width 14.6 % (11.5-14.5); Red Blood Cell (RBC) Count 4.36 mill/uL (4.70-6.10)
[2024-07-11 04:53] LABS: ALT (SGPT) Less than 5 U/L (8-55); AST (SGOT) 10 U/L (5-34); Albumin 3.3 g/dL (3.4-4.8); Alkaline Phosphatase 89 U/L (40-110); Anion Gap 12 mmol/L (10-20); BUN (Urea Nitrogen) 28 mg/dL (8.4-25.7); Bilirubin, Total 2.3 mg/dL (0.2-1.2); Calc. Creatinine Clearance 86 mL/min (70-130); Calcium 8.6 mg/dL (7.8-10.44); Carbon Dioxide 25 mmol/L (23-31); Chloride 104 mmol/L (98-107); Estimated GFR 58; Globulin 2.9 g/dL (2.4-3.5); Glucose 119 mg/dL (80-115); Potassium 3.4 mmol/L (3.5-5.1); Protein, Total 6.2 g/dL (5.8-8.1); Sodium 138 mmol/L (136-145)
[2024-07-11] MEDS: Aspirin Chewable 81 MG TAB PO SCH ×2 (11:14→11:15)
[2024-07-11] MEDS: Isosorbide Mononitrate 60 MG ER.TAB PO SCH (11:14)
[2024-07-11] MEDS: Tamsulosin HCl 0.4 MG CAP PO SCH (11:14)
[2024-07-11 20:20] VITALS: BP 152/72; TEMP 97.4
== END 2024-07-11 21:55 | disposition home or self-care (01) ==
LOC: CCL 05:44 → PCU 11:48 → CCL 11:48 → PCU 14:23
PROVIDERS: ADMIT Internal Medicine Cardiovascular Disease; ATTEND Internal Medicine Cardiovascular Disease
PROC: 4A023N7 Measurement of Cardiac Sampling and Pressure, Left Heart, Percutaneous Approach (ICD-10-PCS; principal; 2024-07-10)
DX: I25.10 Atherosclerotic heart disease of native coronary artery without angina pectoris (principal); I10 Essential (primary) hypertension; I44.1 Atrioventricular block, second degree; I35.0 Nonrheumatic aortic (valve) stenosis; E78.5 Hyperlipidemia, unspecified; G20.A1 Parkinson's disease without dyskinesia, without mention of fluctuations; R33.9 Retention of urine, unspecified; R55 Syncope and collapse; Z95.5 Presence of coronary angioplasty implant and graft; Z95.0 Presence of cardiac pacemaker; Z90.89 Acquired absence of other organs; Z91.041 Radiographic dye allergy status; Z79.02 Long term (current) use of antithrombotics/antiplatelets; Z79.82 Long term (current) use of aspirin; Z79.899 Other long term (current) drug therapy
CPT/HCPCS: 74176; 76936; 80053; 85014; 85018; 85025; 85049; 85347 ×2; 86850; 86900; 86901; 92978; 93005 ×2; 93458; 93798; C1753; C1760; C1769 ×4; C1874; C1887; C1894; C9600; J0360; J1644; J2250; J2270; J2720; J3010; Q9967; 36415; 92928; 93010; 99152; 99153; J0153; J0171

== ENCOUNTER 2024-07-12 18:11 | Emergency (ER) | payer MEDICARE, OTHER ==
[2024-07-12 20:57] LABS: Bacteria/HPF 1+ HPF (None Seen); Bilirubin Negative (Negative); Blood, Urine 3+ (Negative); CAUTI Indications for Culture Dysuria,urgency,freq; Clarity Turbid (Clear); Glucose, Urine (Dipstick) Normal (Negative); Ketone, Urine Negative (Negative); Leukocyte 75 Leu/uL (Negative); Nitrite Negative (Negative); Protein, Urine (Dipstick) 50 mg/dL (Neg-Trace); RBC/HPF Greater than 50 HPF (0-3); Specific Gravity, Urine 1.011 (1.002-1.036); Squamous Epithelial None Seen HPF (0-3); Urobilinogen Normal mg/dL (Less than 2); WBC/HPF Greater than 50 HPF (0-3); Yeast-Budding 1+ HPF (None Seen); pH, Urine 5.5 (5.0-9.0)
[2024-07-12 20:58] LABS: Urine Culture Reflex Yes Yes
[2024-07-12 21:59] LABS: #Basophils 0.03 10x3/uL (0.0-0.2); %Basophils 0.3 % (0.0-1.0); %Eosinophils 0.5 % (0.0-10.0); %Lymphocytes 8.9 % (21.0-51.0); %Monocytes 7.5 % (0.0-10.0); %Neutrophils 82.4 % (42.0-75.0); Hematocrit 34.2 % (42.0-52.0); Hemoglobin 11.6 g/dL (14.0-18.0); Mean Corpuscular HGB CONC 33.9 g/dL (32.0-36.0); Mean Corpuscular Hemoglobin 29.7 pg (27.0-31.0); Mean Corpuscular Volume 87.5 fL (78.0-98.0); Mean Platelet Volume 10.2 fL (7.4-10.4); Platelet Count 161 10x3/uL (130-400); RBC Distribution Width 14.6 % (11.5-14.5); Red Blood Cell (RBC) Count 3.91 mill/uL (4.70-6.10)
== END 2024-07-12 22:30 | disposition home or self-care (01) ==
LOC: ERS 18:11
DX: T83.011A Breakdown (mechanical) of indwelling urethral catheter, initial encounter (principal); R31.0 Gross hematuria; I10 Essential (primary) hypertension; Z79.82 Long term (current) use of aspirin; Z79.02 Long term (current) use of antithrombotics/antiplatelets; Z79.899 Other long term (current) drug therapy
CPT/HCPCS: 36416; 51702; 70450; 81001; 85025; 87077; 87086; 87186

== ENCOUNTER 2024-07-21 16:00 | Emergency (ER) | payer MEDICARE, OTHER ==
[~2024-07-21 16:00] MED LIST: Iopamidol-370 76% 500 ML MDV (1 ML CHARGE) ONE
[2024-07-21 18:43] LABS: #Basophils 0.06 10x3/uL (0.0-0.2); %Basophils 0.6 % (0.0-1.0); %Eosinophils 1.8 % (0.0-10.0); %Lymphocytes 17.1 % (21.0-51.0); %Monocytes 4.8 % (0.0-10.0); %Neutrophils 73.8 % (42.0-75.0); Hematocrit 34.2 % (42.0-52.0); Hemoglobin 11.3 g/dL (14.0-18.0); Mean Corpuscular Hemoglobin 29.2 pg (27.0-31.0); Mean Corpuscular Volume 88.4 fL (78.0-98.0); Mean Platelet Volume 9.7 fL (7.4-10.4); Platelet Count 224 10x3/uL (130-400); RBC Distribution Width 14.4 % (11.5-14.5); Red Blood Cell (RBC) Count 3.87 mill/uL (4.70-6.10)
[2024-07-21 18:57] LABS: INR-International Normal Ratio 1.2; PTT 31.2 sec (22.9-36.1); Prothrombin Time 14.8 sec (12.0-14.7)
[2024-07-21 19:01] LABS: ALT (SGPT) Less than 7 U/L (Less than 45); AST (SGOT) 20 U/L (11-34); Albumin 2.9 g/dL (3.1-4.5); Alkaline Phosphatase 124 U/L (40-110); Anion Gap 11 mmol/L (10-20); BUN (Urea Nitrogen) 19 mg/dL (8.4-25.7); Calc. Creatinine Clearance 0 mL/min (70-130); Calcium 8.4 mg/dL (7.8-10.44); Carbon Dioxide 26 mmol/L (23-31); Chloride 105 mmol/L (98-107); Estimated GFR 78; Globulin 3.2 g/dL (2.4-3.5); Glucose 107 mg/dL (80-115); Potassium 4.3 mmol/L (3.5-5.1); Protein, Total 6.1 g/dL (5.8-8.1); Sodium 138 mmol/L (136-145)
[2024-07-21] MEDS ORDERED: diphenhydrAMINE 50 MG/ML VIAL ONE (19:07)
[2024-07-21] MEDS ORDERED: methylPREDNISolone Sod Succ/PF 125 MG/2 ML VIAL ONE (19:07)
[2024-07-21 19:09] LABS: Bilirubin Negative (Negative); Blood, Urine 3+ (Negative); CAUTI Indications for Culture Pelvic or flank pain; Clarity Clear (Clear); Glucose, Urine (Dipstick) Normal (Negative); Ketone, Urine Negative (Negative); Leukocyte 25 Leu/uL (Negative); Nitrite Negative (Negative); Protein, Urine (Dipstick) 20 mg/dL (Neg-Trace); RBC/HPF Greater than 50 HPF (0-3); Squamous Epithelial None Seen HPF (0-3); Urobilinogen Normal mg/dL (Less than 2); pH, Urine 6.5 (5.0-9.0)
[2024-07-21 19:11] LABS: Urine Culture Reflex No No
[2024-07-21] MEDS ORDERED: Famotidine/PF 20 mg/2ml Vial ONE (19:11)
[2024-07-21] MEDS ORDERED: methylPREDNISolone Sod Succ 40 MG VIAL ONE (19:13)
[2024-07-21 19:32] LABS: Bacteria/HPF Rare-Few HPF (None Seen)
== END 2024-07-21 21:49 | disposition home or self-care (01) ==
LOC: ERS 16:00
DX: N50.82 Scrotal pain (principal); I10 Essential (primary) hypertension; Z95.5 Presence of coronary angioplasty implant and graft; Z95.0 Presence of cardiac pacemaker
CPT/HCPCS: 74177; 76936; 80053; 81001; 83605; 83880; 84484; 85025; 85610; 85730; 87040; 87086; 93005; 96374; 96375; J1200; J2919; J3490; Q9967

== ENCOUNTER 2024-07-24 19:42 | Emergency (ER) | payer MEDICARE, OTHER | END 2024-07-24 22:57 | disposition home or self-care (01) | LOC: ERS 19:42 | DX: T83.091A Other mechanical complication of indwelling urethral catheter, initial encounter (principal); Z95.0 Presence of cardiac pacemaker | CPT/HCPCS: 51702; 99282 ==

== ENCOUNTER 2024-07-25 08:33 | Emergency (ER) | payer MEDICARE, OTHER ==
[2024-07-25 10:46] LABS: Hematocrit 36.6 % (42.0-52.0); Hemoglobin 11.8 g/dL (14.0-18.0)
[2024-07-25 11:07] LABS: Bacteria/HPF None Seen HPF (None Seen); Bilirubin Negative (Negative); Blood, Urine 3+ (Negative); CAUTI Indications for Culture Acute Hematuria; Clarity Turbid (Clear); Glucose, Urine (Dipstick) Normal (Negative); Ketone, Urine Negative (Negative); Leukocyte 25 Leu/uL (Negative); Nitrite Negative (Negative); Protein, Urine (Dipstick) 20 mg/dL (Neg-Trace); RBC/HPF Greater than 50 HPF (0-3); Specific Gravity, Urine 1.008 (1.002-1.036); Squamous Epithelial None Seen HPF (0-3); Urobilinogen Normal mg/dL (Less than 2); WBC/HPF None Seen HPF (0-3); pH, Urine 5.5 (5.0-9.0)
[2024-07-25 11:11] LABS: Urine Culture Reflex No No
== END 2024-07-25 11:11 | disposition home or self-care (01) ==
LOC: ERS 08:33
DX: T83.83XA Hemorrhage due to genitourinary prosthetic devices, implants and grafts, initial encounter (principal); I10 Essential (primary) hypertension; Z95.5 Presence of coronary angioplasty implant and graft; Z95.0 Presence of cardiac pacemaker
CPT/HCPCS: 36415; 81001; 85014; 85018; 99283

== ENCOUNTER 2025-02-20 14:34 | Outpatient (CLI) | payer OTHER | END 2025-02-20 14:35 | disposition home or self-care (01) | LOC: DTY/OP 14:34 | PROVIDERS: ATTEND Family Medicine | DX: I10 Essential (primary) hypertension (principal) | CPT/HCPCS: 97802 ==

== ENCOUNTER 2025-05-31 23:49 | Emergency (ER) | payer MEDICARE, OTHER | END 2025-06-01 02:20 | disposition home or self-care (01) | LOC: ERS 23:49 | DX: S82.62XA Displaced fracture of lateral malleolus of left fibula, initial encounter for closed fracture (principal); S82.52XA Displaced fracture of medial malleolus of left tibia, initial encounter for closed fracture; I10 Essential (primary) hypertension; Z95.0 Presence of cardiac pacemaker; X50.1XXA Overexertion from prolonged static or awkward postures, initial encounter ==